=== PATIENT | male | born 1990 | race Two or more races ===

== ENCOUNTER 2022-04-02 09:34 | Outpatient (CLI) | payer OTHER ==
--- NOTE | 2022-04-04 09:08 | MRI Report ---
PROCEDURE: SHOULDER WO - LT INDICATIONS: PAIN IN LEFT SHOULDER TECHNIQUE: Noncontrast oblique coronal T2 fast spin echo with fat saturation, oblique sagittal T1 spin echo and T2 fast spin echo with fat saturation, axial T1 spin echo and T2 fast spin echo with fat saturation t hrough the shoulder. COMPARISON: None. FINDINGS: Image quality: Excellent. Rotator cuff: There is low-grade bursal surface tearing of the posterior supraspinatus tendon at the muscular tendinous junction extending to the humeral insertion site. There is high-grade intrasubstan ce and articular surface tearing of the anterior infraspinatus/posterior supraspinatus junction exten ding from the humeral insertion site to the muscular tendinous junction, measuring roughly 8 mm anter oposterior. Subscapularis and teres minor tendons are intact. Bones and bursae: No bone marrow contusions or fractures. No acromioclavicular joint degeneration. The acromion demonstrates conventional anatomy, without an os acromiale. No pathologic subacromial/ subdeltoid bursal fluid is present. Capsule and soft tissues: In the absence of intra-articular contrast, the labrum and glenohumeral li gaments appear intact. The long head of the biceps tendon demonstrates normal location and morpholog y. The rotator interval appears normal, without fibrosis. The coracohumeral ligament is normal in t hickness. IMPRESSION: 1. Supraspinatus and infraspinatus tendon tearing as described above. Reviewed by: Dashawn Rey MD on 04/04/2022 9:07 AM [facility] Approved by: Dashawn Rey MD on 04/04/2022 9:07 AM PST Station ID: [id number]
== END 2022-04-02 09:35 | disposition home or self-care (01) ==
LOC: DI 09:34
PROVIDERS: ATTEND Student in an Organized Health Care Education/Training Program
DX: M75.102 Unspecified rotator cuff tear or rupture of left shoulder, not specified as traumatic (principal)

== ENCOUNTER 2022-04-14 20:21 | Emergency (ER) | payer OTHER ==
[2022-04-14] MEDS ORDERED: KETOROLAC 30 MG/ML VIAL IM STA (20:55)
--- NOTE | 2022-04-14 21:06 | ED Physician Documentation ---
<Tarun Redman - Last Filed: 04/14/22 22:57> History of Present Illness - Stated complaint Stated Complaint: BACK PX - Chief complaint Chief Complaint: Trauma Ch/Bk PD PAST MEDICAL HISTORY - Present Medications Home Medications: Ambulatory Orders Medication Instructions Recorded Confirmed Cyclobenzaprine [Flexeril] 10 mg PO TID PRN #20 tablet 04/14/22 Meloxicam [Mobic] 7.5 mg PO BID PRN #20 tablet 04/14/22 - Allergies Allergies/Adverse Reactions: Allergies Allergy/AdvReac Type Severity Reaction Status Date / Time No Known Drug Allergies Allergy Verified 04/14/22 20:52 PD MEDICAL DECISION MAKING - ED course Complexity details: reviewed results, re-evaluated patient, considered differential, d/w patient Departure - Departure Disposition: 01 Home, Self Care Clinical Impression: Right testicular pain Right low back pain Qualifiers: Chronicity: acute Sciatica presence: without sciatica Qualified Code(s): M54.50 - Low back pain, unspecified Condition: Stable Instructions: ED Low Back Pain Injury, ED Hernia Inguinal Follow-Up: your,doctor in 1 week [Other] Prescriptions: Cyclobenzaprine [Flexeril] 10 mg PO TID PRN #20 tablet PRN Reason: Spasms Meloxicam [Mobic] 7.5 mg PO BID PRN #20 tablet PRN Reason: Pain Comments: Bernardo came to the emergency department today because you developed pain in the right side of your low back with some pain in the right testicle while lifting. I suspect that you have strained your lower lumbar spine and would make the recommendation to take 600 mg of Motrin with food 2-3 times a day or alternate with 500 mg of Tylenol. We did do a testicular ultrasound to evaluate for the possibility of developing an inguinal hernia that could have occurred with lifting. You do have a small hernia on ultrasound, you can follow-up with your doctor regarding this. Forms: Activity restrictions Discharge Date/Time: 04/14/22 22:58 <Keara Babin - Last Filed: 04/15/22 09:05> History of Present Illness - Additonal information Additional information: 31-year-old male presents to the emergency department for evaluation of acute right low back pain as well as testicular pain that occurred when he was lifting approximately 450 pounds. He does have a history of low back pain in the past as well as a known hydrocele. He took no medication and on the advice of the [place] [facility] was advised to come to the ER. No saddle anesthesia, loss of bowel or bladder function. No history of cancer or intravenous drug use. He has a normal gait. Review of Systems Constitutional: reports: Reviewed and negative Throat: reports: Reviewed and negative Cardiac: reports: Reviewed and negative Respiratory: reports: Reviewed and negative GI: reports: Reviewed and negative : reports: Testicular pain Skin: reports: Reviewed and negative Musculoskeletal: reports: Back pain Neurologic: reports: Reviewed and negative PD PAST MEDICAL HISTORY - Past Medical History Past Medical History: Yes Musculoskeletal: Other Other Past Medical History: Back pains. 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 No swelling of the scrotum. Positive cremasteric bilaterally. No obvious hernia appreciated.) - Back Back: No CVA TTP, No spinal TTP, Other (Mild tenderness elicited of the right lower paraspinous muscles. Normal forward flexion of the lumbar spine. No midline step-off or deformity. Normal gait. Motor strength 5 of 5 bilateral lower extremities.) Results - Vitals Vitals: Vital Signs - 24 hr 04/14/22 04/14/22 20:49 22:52 Temperature 37.5 C 37.4 C Heart Rate 78 78 Respiratory 16 17 Rate Blood Pressure 127/77 113/80 O2 Saturation 99 99 Oxygen O2 Source Room air PD MEDICAL DECISION MAKING - ED course Complexity details: reviewed results, re-evaluated patient, d/w patient ED course: 31-year-old male presents emergency department for evaluation of acute right low back pain as well as acute right testicular pain when lifting about 450 pounds. He does have a remote history of a hydrocele of his testicle though he is uncertain of which side. On exam he has a fairly benign back pain exam. There were no red flags. He is normal gait and normal forward flexion of the lumbar spine. I did do a testicular exam and mild tenderness was elicited with palpation of the right testicle but no scrotal swelling or obvious inguinal hernias appreciated. Given the sudden onset of pain within the right testicle with lifting and ultrasound is ordered to follow-up for the possibility of an inguinal hernia. If otherwise unremarkable or stable patient is stable for discharge home. I would make the recommendation for ibuprofen for low back pain. He was administered a dose of Toradol here in the emergency department. pt is signed out to my night time colleague Dr. redman to f?u on the US results Departure - Departure Record reviewed to determine appropriate education?: Yes
[2022-04-14 22:53] VITALS: BP 113/80
[2022-04-14] MEDS ORDERED: LIDOCAINE PATCH 5% TOP STA (22:55)
--- NOTE | 2022-04-14 23:03 | ED Physician Documentation ---
ED Addendum - Addendum Addendum: 04/14/22 23:02 31-year-old male signed out to me awaiting ultrasound. The ultrasound does show a small reducible inguinal hernia. He is continuing to have back pain and spasm. Will place on anti-inflammatories and muscle relaxants for home. He was given a Lidoderm patch here tonight. He is driving himself home. No evidence of cauda equina, epidural abscess. Patient counseled regarding signs and symptoms for which I believe and urgent re-evaluation would be necessary. Patient with good understanding of and agreement to plan and is comfortable going home at this time This document was made in part using voice recognition software. While efforts are made to proofread this document, sound alike and grammatical errors may occur. Departure - Departure Disposition: Home, Self Care Clinical Impression: Right testicular pain Right low back pain Qualifiers: Chronicity: acute Sciatica presence: without sciatica Qualified Code(s): M54.50 - Low back pain, unspecified Condition: Stable Instructions: ED Low Back Pain Injury, ED Hernia Inguinal Follow-Up: your,doctor in 1 week [Other] Prescriptions: Cyclobenzaprine [Flexeril] 10 mg PO TID PRN #20 tablet PRN Reason: Spasms Meloxicam [Mobic] 7.5 mg PO BID PRN #20 tablet PRN Reason: Pain Comments: Bernardo came to the emergency department today because you developed pain in the right side of your low back with some pain in the right testicle while lifting. I suspect that you have strained your lower lumbar spine and would make the recommendation to take 600 mg of Motrin with food 2-3 times a day or alternate with 500 mg of Tylenol. We did do a testicular ultrasound to evaluate for the possibility of developing an inguinal hernia that could have occurred with lifting. You do have a small hernia on ultrasound, you can follow-up with your doctor regarding this. Forms: Activity restrictions
--- NOTE | 2022-04-15 00:04 | Ultrasound Report ---
PROCEDURE: Testicle w/Doppler INDICATIONS: Right inguinal pain with lifting. hx of hydro TECHNIQUE: Real-time scanning was performed of the scrotum and testicles, with image documentation. Color and p ulse Doppler interrogation was performed of both testicles. COMPARISON: None. FINDINGS: Right: Testicle measures 5.3 x 2.5 x 3.3 cm and appears homogenous in echotexture. Epididymis is no rmal in overall size and morphology. There is a minimal hydrocele. No varicoceles. Overlying scrota l skin is normal in thickness. There is a small fat-containing reducible right inguinal hernia with t he hernia neck measuring approximately 0.5 cm. The hernia measures up to approximately 2 x 0.7 cm. Left: Testicle measures 4.9 x 2.2 x 3 cm and appears homogeneous in echotexture. Epididymis is norm al in overall size and morphology. There is a minimal hydrocele. No varicoceles. Overlying scrotal skin is normal in thickness. Doppler: Color and pulse Doppler demonstrate normal and symmetric arterial flow in both testicles. P atent venous flow also demonstrated bilaterally. IMPRESSION: 1. Small fat-containing reducible right inguinal hernia. 2. No definite evidence of testicular torsion Reviewed by: Antolin Alvarado MD on 04/15/2022 12:11 AM PST Approved by: Antolin Alvarado MD on 04/15/2022 12:11 AM PST Station ID: [id number]
== END 2022-04-14 22:58 | disposition home or self-care (01) ==
LOC: ED 20:21
DX: N50.811 Right testicular pain (principal); M54.50 Low back pain, unspecified; K40.90 Unilateral inguinal hernia, without obstruction or gangrene, not specified as recurrent
CPT/HCPCS: 76870; 93975; 96372; 99282; 99284; A9270

== ENCOUNTER 2022-06-30 08:49 | Outpatient (CLI) | payer OTHER ==
[2022-06-30] MEDS ORDERED: LIDOCAINE-MPF 1% 5 ML VIAL ONE (08:54)
[2022-06-30] MEDS ORDERED: BUPIVACAINE 0.5% PF 10 ML VIAL ONE (08:54)
[2022-06-30] MEDS ORDERED: TRIAMCINOLONE 40 MG/ML VIAL ONE (08:55)
[2022-06-30] MEDS ORDERED: BUPIVACAINE 0.5% PF 10 ML VIAL IM ONE (09:48)
[2022-06-30] MEDS ORDERED: LIDOCAINE-MPF 1% 5 ML VIAL TD ONE (09:49)
[2022-06-30] MEDS ORDERED: TRIAMCINOLONE 40 MG/ML VIAL IM ONE (09:51)
--- NOTE | 2022-06-30 10:09 | XRAY Report ---
PROCEDURE: Inj/Aspiration Major Joint INDICATIONS: LEFT SHOULDER PAIN CONTRAST: Iodinated contrast FLUORO TIME: 0.2 TECHNIQUE: The indications, alternatives, benefits, risks, and complications of the procedure were explained to the patient. Written informed consent was obtained and placed in the chart. The patient was placed in an appropriate position on the fluoroscopy table, and a site was chosen for percutaneous access un braden fluoroscopic guidance. Local anesthetic was administered using a 1% lidocaine solution. A hypod ermic or spinal needle was then used to access the symptomatic joint. Intra-articular location of th e needle tip was confirmed by injecting a small amount of contrast, followed by steroid administratio n. The needle was then withdrawn, and a bandage applied to the puncture site. FINDINGS: Joint injected: Left glenohumeral Medications injected: 7 mL of 40 mg/mL Kenalog and 0.5% Ropivacaine mixture. Complications: None. IMPRESSION: Successful fluoroscopically guided administration of steroid and anaesthetic solution into the left g lenohumeral joint. Reviewed by: Dashawn Rey MD on 06/30/2022 10:08 AM PST Approved by: Dashawn Rey MD on 06/30/2022 10:08 AM PST Station ID: [id number]
== END 2022-06-30 08:50 | disposition home or self-care (01) ==
LOC: DI 08:49
PROVIDERS: ATTEND Orthopaedic Surgery
DX: M25.512 Pain in left shoulder (principal)
CPT/HCPCS: 20610; 77002; Q9965